=== PATIENT | male | born 1945 | race Caucasian/White ===

== ENCOUNTER 2018-03-12 11:08 | Observation (INO) | payer MEDICARE, OTHER ==
[2018-03-12] MEDS: ASPIRIN 81 MG TAB PO (11:25)
[2018-03-12] MEDS ORDERED: NITROGLYCERIN (SL) 0.4 MG TAB (11:27)
[2018-03-12 11:28] LABS: ADD MAN DIFF? NO
[2018-03-12] MEDS: NITROGLYCERIN (SL) 0.4 MG TAB SL (11:28)
[2018-03-12 11:31] LABS: BASOPHIL # 0.1 10^3/ul (0.0-0.1); BASOPHILS % 0.7 % (0.0-2.0); EOSINOPHILS # 0.2 10^3/ul (0.0-0.5); EOSINOPHILS % 2.5 % (0.0-7.0); HEMATOCRIT 50.7 % (42.0-52.0); HEMOGLOBIN 15.7 g/dl (14.0-18.0); LYMPHOCYTES # 2.3 10^3/ul (0.8-2.9); MEAN CORPUSCULAR HEMOGLOBIN 24.8 pg (29.0-33.0); MEAN CORPUSCULAR VOLUME 80.2 fl (82.0-101.0); MEAN PLATELET VOLUME 10.2 fl (7.4-10.4); MONOCYTE # 0.8 10^3/ul (0.3-0.9); MONOCYTES % 9.8 % (0.0-11.0); NEUTROPHILS % 59.8 % (39.0-77.0); PLATELET COUNT 251 10^3/UL (140-415); RED BLOOD COUNT 6.32 10^6/ul (4.70-6.10); RED CELL DISTRIBUTION WIDTH 16.4 % (11.5-14.5)
[2018-03-12 11:31] LABS: WHITE BLOOD COUNT 8.3 10^3/ul (4.8-10.8)
[2018-03-12 11:55] LABS: ANION GAP 15 (8-16); BLOOD UREA NITROGEN 10 mg/dl (7-20); CALCIUM 9.3 mg/dl (8.4-10.2); CARBON DIOXIDE 29 mmol/L (21-31); CHLORIDE 104 mmol/L (97-110); CREATININE 0.68 mg/dl (0.61-1.24); GLUCOSE 101 mg/dl (70-220); POTASSIUM 4.7 mmol/L (3.5-5.1); SODIUM 143 mmol/L (135-144)
[2018-03-12 12:06] LABS: TROPONIN-I < 0.012 ng/ml (0.000-0.120)
[2018-03-12] MEDS ORDERED: ONDANSETRON 4 MG INJ IV ×2 (12:30→14:00)
[2018-03-12] MEDS ORDERED: ACETAMINOPHEN 325 MG TAB PO ×2 (12:30→14:00)
[2018-03-12] MEDS ORDERED: HYDROCODONE/APAP (5/325) TAB PO ×2 (14:00)
[2018-03-12] MEDS ORDERED: DOCUSATE SODIUM 100 MG CAP PO (14:00)
[2018-03-12] MEDS ORDERED: GLUCOSE GEL 15 GRAM TUBE BUCCAL (14:00)
[2018-03-12] MEDS ORDERED: BISACODYL 10 MG SUPP PR (14:00)
[2018-03-12] MEDS ORDERED: GLUCOSE GEL 15 GRAM TUBE PO ×2 (14:00)
[2018-03-12] MEDS ORDERED: ACETAMINOPHEN 650 MG SUPP PR (14:00)
[2018-03-12] MEDS ORDERED: DEXTROSE 50% 50 ML SYRINGE IV ×2 (14:00)
[2018-03-12] MEDS ORDERED: GLUCAGON 1 MG INJ IM (14:00)
[2018-03-12] MEDS ORDERED: NACL 0.9% 3 ML SYG IV (14:00)
[2018-03-12] MEDS ORDERED: morphine 2 MG INJ IV (14:00)
[2018-03-12] MEDS ORDERED: MAGNESIUM HYDROXIDE 30ML CUP PO (14:00)
[2018-03-12] MEDS ORDERED: ALBUTEROL/IPRATROPIUM (NEB) 3 ML AMP HHN (14:30)
[2018-03-12 14:57] LABS: CREATINE KINASE 45 IU/L (23-200); IRON 54 ug/dl (35-150)
[2018-03-12 15:09] LABS: % IRON SATURATION 14 % SAT (22-52); TOTAL IRON BINDING CAPACITY 380 ug/dl (241-421)
[2018-03-12 15:11] LABS: CK INDEX 1.4; CK-MB 0.63 ng/ml (0.0-2.4); TROPONIN-I < 0.012 ng/ml (0.000-0.120)
[2018-03-12] MEDS: LEVOFLOXACIN 500MG/D5W (PMX) 100 ML IVPB (15:22)
[2018-03-12] MEDS: FUROSEMIDE 40 MG INJ IV (16:23)
[2018-03-12] MEDS: ALBUTEROL/IPRATROPIUM (NEB) 3 ML AMP HHN (16:47)
[2018-03-12] MEDS: INSULIN ASPART [NOVOLOG] 3 ML PEN SC ×3 (17:12→20:33)
[2018-03-12] MEDS: INSULIN GLARGINE [LANTus] (100 UNITS/ML) SYG SC (20:00)
[2018-03-12 20:03] LABS: CREATINE KINASE 47 IU/L (23-200)
[2018-03-12 20:15] LABS: CK INDEX 1.3; CK-MB 0.63 ng/ml (0.0-2.4); TROPONIN-I < 0.012 ng/ml (0.000-0.120)
[2018-03-12] MEDS: RANOLAZINE (SR) 500 MG TAB PO (20:31)
[2018-03-12] MEDS: FISH OIL 1,000 MG CAP PO (20:32)
[2018-03-12] MEDS: ATORVASTATIN 10 MG TAB PO (20:32)
[2018-03-12] MEDS: CHOLECALCIFEROL 2,000 UNIT CAP PO (20:32)
[2018-03-12] MEDS: TAMSULOSIN (SR) 0.4 MG CAP PO (20:33)
[2018-03-12] MEDS: HEPARIN 5,000 UNIT/0.5 ML VIAL SC (20:53)
[2018-03-13] MEDS: ACCU-CHEK XX (02:00)
[2018-03-13] MEDS: PANTOPRAZOLE 40 MG INJ IV (05:59)
[2018-03-13 06:15] LABS: ADD MAN DIFF? NO
[2018-03-13 06:27] LABS: BASOPHILS % 0.6 % (0.0-2.0); EOSINOPHILS # 0.2 10^3/ul (0.0-0.5); EOSINOPHILS % 2.2 % (0.0-7.0); HEMATOCRIT 47.5 % (42.0-52.0); HEMOGLOBIN 14.5 g/dl (14.0-18.0); LYMPHOCYTES # 1.5 10^3/ul (0.8-2.9); LYMPHOCYTES % 22.5 % (15.0-51.0); MEAN CORPUSCULAR HEMOGLOBIN 24.8 pg (29.0-33.0); MEAN CORPUSCULAR HGB CONC 30.5 g/dl (32.0-37.0); MEAN CORPUSCULAR VOLUME 81.2 fl (82.0-101.0); MEAN PLATELET VOLUME 10.8 fl (7.4-10.4); MONOCYTE # 0.6 10^3/ul (0.3-0.9); MONOCYTES % 8.9 % (0.0-11.0); NEUTROPHIL # 4.5 10^3/ul (1.6-7.5); NEUTROPHILS % 65.4 % (39.0-77.0); PLATELET COUNT 215 10^3/UL (140-415); RED BLOOD COUNT 5.85 10^6/ul (4.70-6.10); RED CELL DISTRIBUTION WIDTH 15.3 % (11.5-14.5)
[2018-03-13 06:27] LABS: WHITE BLOOD COUNT 6.9 10^3/ul (4.8-10.8)
[2018-03-13 07:08] LABS: ALANINE AMINOTRANSFERASE 23 IU/L (13-69); ALBUMIN 3.5 g/dl (3.3-4.9); ALKALINE PHOSPHATASE 50 IU/L (42-121); ANION GAP 11 (8-16); ASPARTATE AMINO TRANSFERASE 21 IU/L (15-46); BILIRUBIN,INDIRECT 0.2 mg/dl (0-1.1); BILIRUBIN,TOTAL 0.2 mg/dl (0.2-1.3); BLOOD UREA NITROGEN 14 mg/dl (7-20); CALCIUM 8.9 mg/dl (8.4-10.2); CARBON DIOXIDE 32 mmol/L (21-31); CHLORIDE 102 mmol/L (97-110); CHOL/HDL RATIO 4.8 RATIO; CHOLESTEROL 155 mg/dl (100-200); GLUCOSE 98 mg/dl (70-220); HDL CHOLESTEROL 32 mg/dl (31-75); LDL CHOLESTEROL,CALCULATED 84 mg/dl; PHOSPHORUS 4.1 mg/dl (2.5-4.9); POTASSIUM 4.5 mmol/L (3.5-5.1); SODIUM 140 mmol/L (135-144); TOTAL PROTEIN 6.4 g/dl (6.1-8.1); TRIGLYCERIDES 197 mg/dl (0-149)
[2018-03-13 07:11] LABS: T3 UPTAKE 32.2 % (23.5-40.5); T4 (THYROXINE) 8.7 ug/dl (5.5-11.0)
[2018-03-13 07:46] LABS: HEMOGLOBIN A1C 5.6 % (0-5.9)
[2018-03-13 08:13] LABS: CREATINE KINASE 31 IU/L (23-200)
[2018-03-13] MEDS: FUROSEMIDE 40 MG INJ IV (08:21)
[2018-03-13] MEDS: CHOLECALCIFEROL 2,000 UNIT CAP PO (08:22)
[2018-03-13] MEDS: FISH OIL 1,000 MG CAP PO (08:22)
[2018-03-13] MEDS: LOSARTAN 50 MG TAB PO ×2 (08:23→08:36)
[2018-03-13] MEDS: RANOLAZINE (SR) 500 MG TAB PO (08:23)
[2018-03-13] MEDS: DUTASTERIDE 0.5 MG CAP PO (08:23)
[2018-03-13] MEDS: MEMANTINE 10 MG TAB PO ×2 (08:24→08:36)
[2018-03-13] MEDS: AMLODIPINE 5 MG TAB PO ×2 (08:25→08:36)
[2018-03-13] MEDS: HYDROCHLOROTHIAZIDE 12.5 MG CAP PO (08:25)
[2018-03-13 08:27] LABS: CK INDEX 2.1; CK-MB 0.64 ng/ml (0.0-2.4); TROPONIN-I < 0.012 ng/ml (0.000-0.120)
[2018-03-13] MEDS: HEPARIN 5,000 UNIT/0.5 ML VIAL SC (08:34)
[2018-03-13] MEDS: ALBUTEROL/IPRATROPIUM (NEB) 3 ML AMP HHN ×4 (08:47→16:30)
[2018-03-13] MEDS: REGADENOSON 0.4 MG/5 ML SYG (11:40)
[2018-03-13] MEDS: LEVOFLOXACIN 500MG/D5W (PMX) 100 ML IVPB (13:58)
[2018-03-13] MEDS ORDERED: morphine LIQ (10 MG/5 ML) CUP PO (17:00)
== END 2018-03-13 17:00 | disposition home health service (06) ==
LOC: E/R 11:08 → TEL 12:15
PROVIDERS: Internal Medicine
DX: R07.9 Chest pain, unspecified (principal); R06.00 Dyspnea, unspecified; E11.9 Type 2 diabetes mellitus without complications; I10 Essential (primary) hypertension; E78.5 Hyperlipidemia, unspecified; E66.9 Obesity, unspecified; Z68.42 Body mass index [BMI] 45.0-49.9, adult; I25.10 Atherosclerotic heart disease of native coronary artery without angina pectoris; R94.31 Abnormal electrocardiogram [ECG] [EKG]
CPT/HCPCS: 36415; 71045; 78452; 80048; 80053; 80061; 82550; 82553; 82962; 83036; 83540; 83735; 84100; 84436; 84443; 84479; 84484; 85025; 93005; 93017; 93306; 94640; 94664; 99285-25; G0378